=== PATIENT | female | born 1965 | race Caucasian/White ===

== ENCOUNTER → 2016-09-06 | Outpatient (CLI) | payer BC, OTHER ==
--- NOTE | 2016-09-08 09:50 | Diagnostic Imaging Report ---
PROCEDURE: MRI left joint lower extremity without contrast. TECHNIQUE: A multiplanar/multisequence noncontrast enhanced MRI of the left lower extremity was accomplished. INDICATION: Tibial tendinitis. Medial ankle pain and history of plantar fasciitis. FINDINGS: There is good alignment of the ankle. There is no focal marrow signal abnormality demonstrated within the distal tibia. There are a few small developing cysts demonstrated along the medial margins of the tip of the fibula which would be favored to be on a degenerative basis. There is no evidence to suggest a distal fibular fracture. The talar dome is normal in morphology. There is a small degree of edema demonstrated within the inferior aspect of the talus and anterior aspect of the navicular. The calcaneus demonstrates no marrow edema. There is a large degenerative calcaneal spur. There is no significant edema demonstrated along this spur or evidence of significant thickening of the plantar fascia. There are some osteoarthritic degenerative osteophytes within the midfoot. The tarsal tunnel is unremarkable. There is a small talonavicular joint effusion and a small degree of fluid within the tibiotalar joint. The Achilles tendon appears normal. There is no abnormal thickening or signal evident within the posterior tibial, flexor digitorum longus, or flexor hallucis longus. The peroneus longus and brevis tendons also appear unremarkable. The visualized portions of the anterior extensor tendons are unremarkable. There is no evidence of tendinous disruption. The signal of the intrinsic muscles of the visualized portion of the foot appears normal. There is no focal fluid collection or evidence of a soft tissue mass. There is some mild subcutaneous edema demonstrated deep to the posterior aspect of the calcaneus. IMPRESSION: 1. There are some small regions of edema demonstrated within the distal fibula within the inferior aspect of the talus and anterior aspect of the navicular that are favored to be on a degenerative basis. There is no evidence of a hypointense fracture line. 2. There are small talonavicular and tibiotalar joint effusions. 3. Degenerative calcaneal spur with some subcutaneous edema deep to the calcaneus but no significant signal abnormality or thickening evident of the proximal plantar fascia. 4. The signal characteristics within the tendons of the ankle appear unremarkable. There is no fluid within the tendon sheathes to suggest significant tenosynovitis. There is no evidence of tendinous disruption. Dictated by: Dictated on workstation # [id number]
== END ==
LOC: RAD 12:45
PROVIDERS: ATTEND Podiatrist Foot & Ankle Surgery
DX: M76.822 Posterior tibial tendinitis, left leg (principal)
CPT/HCPCS: 73721